=== PATIENT | female | born 1960 | race Caucasian/White ===

== ENCOUNTER 2019-10-08 11:06 | Emergency (ER) | payer OTHER, SELFPAY ==
--- NOTE | 2019-10-08 11:15 | XRR_ITS ---
PROCEDURE INFORMATION: Exam: XR Chest, 1 View Exam date and time: 10/08/2019 11:34 AM Age: 59 years old Clinical indication: Chest pain; Type not specified TECHNIQUE: Imaging protocol: XR of the chest Views: 1 view. COMPARISON: [facility] Chest 2 views 02/10/2015 8:22 AM FINDINGS: Lungs: Streaky bibasilar opacities are suggestive of atelectasis. Pleural space: Unremarkable. No pleural effusion. No pneumothorax. Heart/Mediastinum: There is mild cardiomegaly. Bones/joints: Unremarkable. XR/XR chest 1V portable [id number] IMPRESSION: Mild bibasilar atelectasis.
[2019-10-08 11:16] VITALS: BP 155/103; PULSE 73; RESP 16; TEMP 36.6; O2SAT 94; BMI 34.4
--- NOTE | 2019-10-08 11:16 | ECG_ITS ---
Measurements Intervals [place] Rate: 71 P: 52 PA: 142 QRS: 60 QRSD: 100 T: 61 QT: 442 QTc: 483 SINUS RHYTHM No previous ECG available for comparison Electronically Signed On 10-08-2019 16:47:01 CDT by Edson Lopez M.D. [id number]
--- NOTE | 2019-10-08 11:29 | ED_ITS ---
HPI - Chest Pain General: Chief Complaint: Chest Pain Stated Complaint: CHEST PAIN Time Seen by Provider: 10/08/19 11:15 History of Present Illness: HPI narrative: Patient is a 59-year-old female presenting today with chest pain that started about 1030 this morning. She was at work moving heavy boxes. She has been under a lot of stress because the place she works is closing. She started having chest pain that got better when she rested and was worse with exertion. EMS was called. She was diaphoretic and short of breath. She was given nitroglycerin tablets and now has an inch of Nitropaste on her chest and her pain is down to a 0. At its worst it was a 6. She has no history of prior cardiac disease. No family history of cardiac disease. She is a smoker. She is overweight. She has been having swelling in her legs for the past few months. She denies orthopnea or PND. MD complaint: chest pain Onset: during exertion Pain location: substernal Pain radiation: right arm Severity: severe Quality: heaviness Relieving factors: nitroglycerin and rest Exacerbating factors: exertion Associated symptoms: Deny abdominal pain, dyspnea, fever(s), nausea or vomiting Review of Systems General: Reports: 10 or more systems reviewed and unremarkable except in HPI and below Const: Denies: fever(s), chills, fatigue or malaise Eyes: Denies: change in vision ENMT: Denies: odynophagia Card: Reports: chest pain and swelling of feet/ankles (For several months) Resp: Denies: dyspnea, productive cough or non-productive cough GI: Denies: abdominal pain, nausea or vomiting : Denies: flank pain or difficulty voiding Musc: Denies: neck pain or back pain Skin/Breast: Denies: rash Neuro: Denies: headache(s), numbness in extremities or weakness in extremities Wm/Lymph: Denies: easy bruising or easy bleeding PFSH ED PFSH: Social History Smoking and tobacco status: current every day smoker Physical Exam Const: COMMON NORMALS: no acute distress, patient oriented x3, no limitations and alert GENERAL APPEARANCE: cooperative and comfortable HENMT: HEAD & SCALP: normal to inspection FACE & SINUS: normal facial exam Eye: GENERAL EYE: appearance normal, both eyes and all related structures Neck/C-Spine: COMMON NORMALS: supple, no meningeal signs and no JVD Chest: COMMONS NORMALS: normal inspection of the chest Resp: COMMON NORMALS: normal respiratory effort, No use of accessory muscles and clear to auscultation bilaterally AUSCULTATION: clear to auscultation bilaterally Cardio: COMMON NORMALS: no JVD, regular rate, regular rhythm and No murmurs present (Cardio) RATE: regular rate RHYTHM: regular rhythm GI: COMMON NORMALS: Normal to inspection, nondistended, normoactive bowel sounds present, Soft to palpation and non-tender INSPECTION: Yes normal to inspection AUSCULTATION: Yes normoactive bowel sounds PALPATION: Yes Soft to palpation Back/Pelvis: COMMON NORMALS: thoracic and lumbar spine normal to inspection Extremity: GENERAL: Yes edema (2+) Neuro: COMMON NORMALS: patient oriented x3, moves all extremities, no focal motor deficits and no sensory deficits noted SENSORIUM/ORIENTATION: Yes alert MENINGEAL SIGNS: Yes no meningeal signs Psych: COMMON NORMALS: mental status grossly normal, cooperative and normal affect Skin: COMMON NORMALS: no rashes or lesions noted and turgor normal GENERAL SKIN EXAM: no rashes or lesions noted and turgor normal Course ED course: This patient does have some risk factors for cardiac disease. Her pain was exertional today. She also has been under a lot of stress and she believes that the symptoms were related to anxiety. I discussed with her that particularly in women symptoms can be attributed to anxiety that are actually truly cardiac and that what we have done today is only rule out that she had an actual heart attack today. Strongly encouraged her to get follow-up with her primary care for further testing. I do not think she has significant risk today and I do not think she needs to be admitted to the hospital. She understands the return precautions. Vital Signs: Vital signs: Vital Signs Temperature 97.9 F 10/08/19 11:16 Pulse Rate 62 10/08/19 14:44 Respiratory Rate 15 10/08/19 14:44 Blood Pressure 144/88 10/08/19 14:44 Pulse Oximetry 93 10/08/19 14:44 MDM - Chest Pain Lab Data: Labs: Lab Results 10/08/19 10/08/19 10/08/19 Range/Units 10:47 10:47 10:47 WBC 11.0 H (4.0-10.0) 10^3/ uL RBC 4.90 (4.1-5.3) 10^6/u L Hgb 14.1 (11.5-15.3) g/dL Hct 43.4 (37.0-47.0) % MCV 88.6 (81-99) fL MCH 28.8 (28.0-34.0) pg MCHC 32.5 (30.0-36.0) g/dL RDW 13.7 (12.1-15.1) % Plt Count 300 (130-400) 10^3/c mm MPV 10.3 (7.4-10.4) fL Neut % (Auto) 57.8 % Lymph % (Auto) 30.1 % Union % (Auto) 7.8 % Eos % (Auto) 3.4 % Baso % (Auto) 0.5 % Neut # (Auto) 6.3 (1.8-7.7) 10^3/u L Lymph # (Auto) 3.3 (0.8-4.8) 10^3/u L Union # (Auto) 0.9 (0.2-0.9) 10^3/u L Eos # (Auto) 0.4 (0.0-0.8) 10^3/u L Baso # (Auto) 0.1 (0.0-0.1) 10^3/u L Nucleated RBC % (a uto) 0 % Nucleated RBCs # 0.0 /100WBC PT 12.80 (10.5-13.3) SECO NDS INR 0.94 (0.8-1.2) APTT 27.9 (23.9-36.7) SECO NDS D-Dimer 0.50 (0-0.59) ug/mIFE U Sodium 138 (136-145) mmol/L Potassium 3.7 (3.5-5.1) mmol/L Chloride 99 (98-107) mmol/L Carbon Dioxide 24 (22-29) mmol/L Anion Gap 18.7 (5-19) BUN 7 (6-20) mg/dL Creatinine 0.9 (0.5-0.9) mg/dL GFR Calculation 64.3 L (90-130) mL/min Glucose 113 (65-115) mg/dL Calculated Osmolal ity 283 L (285-295) mOsm/k g Calcium 9.0 (8.5-10.5) mg/dL Total Bilirubin 0.5 (0.15-1.2) mg/dL AST 24 (0-32) U/L ALT 32 (0-33) U/L Alkaline Phosphata se 114 H (35-105) IU/L Troponin T Baselin e (0-10) ng/mL Troponin T 120 Min [place] (0-10) ng/mL Delta Troponin T (0-10) ABS# NT-Pro-B Natriuret Pep 98 (0-125) pg/mL Total Protein 7.4 (6.6-8.7) g/dL Albumin 4.3 (3.5-5.2) g/dL Globulin 3.1 (1.3-4.6) g/dL Lipase 41 (13-60) U/L Urine Color (Yellow) Urine Appearance (CLEAR) Urine pH (5-7) Ur Specific Gravit y (1.005-1.030) Urine Protein (Negative) Urine Glucose (UA) (Normal) Urine Ketones (Negative) Urine Blood (Negative) Urine Nitrate (Negative) Urine Bilirubin (NEGATIVE) Urine Urobilinogen (Negative) mg/dL Ur Leukocyte Joanna ase (Negative) 10/08/19 10/08/19 10/08/19 Range/Units 10:47 11:40 12:50 WBC (4.0-10.0) 10^3/ uL RBC (4.1-5.3) 10^6/u L Hgb (11.5-15.3) g/dL Hct (37.0-47.0) % MCV (81-99) fL MCH (28.0-34.0) pg MCHC (30.0-36.0) g/dL RDW (12.1-15.1) % Plt Count (130-400) 10^3/c mm MPV (7.4-10.4) fL Neut % (Auto) % Lymph % (Auto) % Union % (Auto) % Eos % (Auto) % Baso % (Auto) % Neut # (Auto) (1.8-7.7) 10^3/u L Lymph # (Auto) (0.8-4.8) 10^3/u L Union # (Auto) (0.2-0.9) 10^3/u L Eos # (Auto) (0.0-0.8) 10^3/u L Baso # (Auto) (0.0-0.1) 10^3/u L Nucleated RBC % (a uto) % Nucleated RBCs # /100WBC PT (10.5-13.3) SECO NDS INR (0.8-1.2) APTT (23.9-36.7) SECO NDS D-Dimer (0-0.59) ug/mIFE U Sodium (136-145) mmol/L Potassium (3.5-5.1) mmol/L Chloride (98-107) mmol/L Carbon Dioxide (22-29) mmol/L Anion Gap (5-19) BUN (6-20) mg/dL Creatinine (0.5-0.9) mg/dL GFR Calculation (90-130) mL/min Glucose (65-115) mg/dL Calculated Osmolal ity (285-295) mOsm/k g Calcium (8.5-10.5) mg/dL Total Bilirubin (0.15-1.2) mg/dL AST (0-32) U/L ALT (0-33) U/L Alkaline Phosphata se (35-105) IU/L Troponin T Baselin e 21 H (0-10) ng/mL Troponin T 120 Min [place] 17.62 H (0-10) ng/mL Delta Troponin T -3.38 L (0-10) ABS# NT-Pro-B Natriuret Pep (0-125) pg/mL Total Protein (6.6-8.7) g/dL Albumin (3.5-5.2) g/dL Globulin (1.3-4.6) g/dL Lipase (13-60) U/L Urine Color Yellow (Yellow) Urine Appearance Clear (CLEAR) Urine pH 5 (5-7) Ur Specific Gravit y 1.015 (1.005-1.030) Urine Protein Neg (Negative) Urine Glucose (UA) Norm (Normal) Urine Ketones Negative (Negative) Urine Blood Neg (Negative) Urine Nitrate Negative (Negative) Urine Bilirubin Neg (NEGATIVE) Urine Urobilinogen 1 H (Negative) mg/dL Ur Leukocyte Joanna ase Negative (Negative) EKG Data^: EKG 1: EKG interpretation date: 10/08/19 EKG interpretation time: 11:38 Interpretation: Sinus rhythm with a rate of 71. Normal intervals. Normal axis. No ST changes suggesting ischemia. Discharge Plan Discharge Patient Disposition: Home, Self-Care Clinical Impression: Chest pain Qualifiers: Chest pain type: unspecified Qualified Code(s): R07.9 - Chest pain, unspecified Condition: Stable Prescriptions: No Action Multiple Vitamins Tablet 2 tab PO BEDTIME RF: 0 naproxen 500 mg Tablet 500 mg PO TID PRN (Reason: Pain) RF: 0 Discharge Orders: Discharge Order (Routine); Ordered 10/08/19 Ordered By: Maria Fernanda Valenzuela Referrals: Michelle Bermudez MD [Physician] - 2 weeks Morgan Caballero FNP [Emergency Department] - Discharge Diet: Usual diet Discharge Activity: Limit activity as instructed Patient Instructions: Chest Pain (ED) Activity Restrictions/Additional Instructions: Take an 81 mg aspirin daily until you see cardiology or Dr. Wolf. Discharge Date/Time: 10/08/19 14:50 Coding Level of Care Code ED Gas Regulator Repairer for Chg Fwd Exam Comprehensive
[2019-10-08 11:57] LABS: Basophils # 0.1 10^3/uL (0.0-0.1); Basophils % 0.5 %; Eosinophils # 0.4 10^3/uL (0.0-0.8); Eosinophils % 3.4 %; Hematocrit 43.4 % (37.0-47.0); Hemoglobin 14.1 g/dL (11.5-15.3); Lymphocytes # 3.3 10^3/uL (0.8-4.8); Lymphocytes % 30.1 %; Mean Corpuscular HGB Conc 32.5 g/dL (30.0-36.0); Mean Corpuscular Hemoglobin 28.8 pg (28.0-34.0); Mean Corpuscular Volume 88.6 fL (81-99); Mean Platelet Volume 10.3 fL (7.4-10.4); Monocytes # 0.9 10^3/uL (0.2-0.9); Monocytes % 7.8 %; Neutrophils # 6.3 10^3/uL (1.8-7.7); Neutrophils % 57.8 %; Nucleated Red Blood Cells % 0 %; Platelet Count 300 10^3/cmm (130-400); Red Cell Distribution Width 13.7 % (12.1-15.1)
[2019-10-08 12:04] LABS: INR 0.94 (0.8-1.2)
[2019-10-08 12:05] LABS: Partial Thromboplastin Time 27.9 SECONDS (23.9-36.7)
[2019-10-08 12:06] VITALS: BP 121/63; PULSE 71; RESP 15; O2SAT 93
[2019-10-08 12:11] LABS: Add Urine Microscopic? NO
[2019-10-08 12:19] LABS: Alanine Aminotransferase 32 U/L (0-33); Albumin Level 4.3 g/dL (3.5-5.2); Alkaline Phosphatase 114 IU/L (35-105); Anion Gap 18.7 (5-19); Aspartate Amino Transferase 24 U/L (0-32); Blood Urea Nitrogen 7 mg/dL (6-20); Carbon Dioxide 24 mmol/L (22-29); Chloride 99 mmol/L (98-107); Globulin 3.1 g/dL (1.3-4.6); Glomerular Filtration Rate 64.3 mL/min (90-130); Glucose 113 mg/dL (65-115); Lipase 41 U/L (13-60); NT Pro B Type Natriuretic Pept 98 pg/mL (0-125); Osmolality Calculated 283 mOsm/kg (285-295); Potassium 3.7 mmol/L (3.5-5.1); Sodium 138 mmol/L (136-145); Total Bilirubin 0.5 mg/dL (0.15-1.2); Total Protein 7.4 g/dL (6.6-8.7)
[2019-10-08 12:30] VITALS: BP 134/75; PULSE 68; RESP 15; O2SAT 94
[2019-10-08 12:32] LABS: Troponin(5th) Baseline 21 ng/mL (0-10)
[2019-10-08 12:40] LABS: Urine Appearance Clear (CLEAR); Urine Color Yellow (Yellow)
[2019-10-08 12:41] LABS: Bilirubin Urine Neg (NEGATIVE); Blood Urine Neg (Negative); Glucose Urine UA Norm (Normal); Ketones Urine Negative (Negative); Leukocyte Esterase Urine Negative (Negative); Nitrate Urine Negative (Negative); Protein Urine Neg (Negative); Specific Gravity, Urine 1.015 (1.005-1.030); Urobilinogen Urine 1 mg/dL (Negative); pH Urine 5 (5-7)
[2019-10-08 13:09] LABS: Troponin 5 2HR 17.62 ng/mL (0-10)
--- NOTE | 2019-10-08 13:16 | ECG_ITS ---
Measurements Intervals [place] Rate: 63 P: 42 [place]: 145 QRS: 66 QRSD: 90 T: 60 QT: 463 QTc: 474 SINUS RHYTHM No previous ECG available for comparison Electronically Signed On 10-08-2019 16:49:34 CDT by Edson Lopez M.D. [email or web address]
[2019-10-08 13:30] LABS: Troponin 5 2HR Delta -3.38 ABS# (0-10)
[2019-10-08 13:49] VITALS: BP 150/73; PULSE 72; RESP 20; O2SAT 94
[2019-10-08 14:25] VITALS: BP 133/70; PULSE 69; RESP 18; O2SAT 96
[2019-10-08 14:44] VITALS: BP 144/88; PULSE 62; RESP 15; O2SAT 93
== END 2019-10-08 14:50 | disposition home or self-care (01) ==
PROVIDERS: Emergency Provider Emergency Medicine
DX: R07.9 Chest pain, unspecified (principal); F17.210 Nicotine dependence, cigarettes, uncomplicated
CPT/HCPCS: 12345; 36415; 71045; 80053; 81003; 83690; 83880; 84484; 85025; 85378; 85610; 85730; 93005; 99283; 99284

== ENCOUNTER 2020-06-24 14:08 | Emergency (ER) | payer SELFPAY ==
[2020-06-24 14:32] VITALS: BP 104/66; PULSE 84; RESP 16; TEMP 37; O2SAT 93
--- NOTE | 2020-06-24 15:31 | CT_ITS ---
WS: [id number] CT HEAD TECHNIQUE: Noncontrast CT of the head obtained from the skullbase to the vertex. CLINICAL INFORMATION: fall COMPARISON: None. DLP: 817.[address] scans at [facility] use at least one of these dose optimization techniques: automat ed exposure control; mA and/or kV adjustment per patient size (includes targeted exams where dose is matched to clinical indication); or iterative reconstruction. FINDINGS: No evidence of intracranial hemorrhage or mass effect. Ventricular system and basal cisterns are willett nt. Mild small vessel changes with mild to parenchymal volume loss. No extra-axial fluid collections. No evidence of mass or mass effect. Normal bernal-white differentiation. Mild mucosal thickening right mastoid air cells and sphenoid sinuses. CT/CT head wo con* [id number] IMPRESSION: 1. No evidence of intracranial hemorrhage or mass effect. 2. Normal bernal-white differentiation. 3. No acute intracranial findings.
--- NOTE | 2020-06-24 15:31 | CT_ITS ---
WS: [id number] CT CERVICAL TRAUMA TECHNIQUE: Noncontrast CT of the cervical spine with coronal and sagittal reformatted images. CLINICAL INFORMATION: fall COMPARISON: None. DLP: 665.[address] scans at [facility] use at least one of these dose optimization techniques: automat ed exposure control; mA and/or kV adjustment per patient size (includes targeted exams where dose is matched to clinical indication); or iterative reconstruction. FINDINGS: Straightening of the normal cervical lordosis. Mild spondylitic changes. Normal craniocervical juncti on. Normal C1-C2 articulation. Dens is normal in appearance. Normal occipital condyles. No high-grade spinal canal narrowing. Normal C1 ring.Fracture through the base of an anterior bridging osteophyte at left C6-7. This is age indeterminant but most likely chronic. This appears well-corticated. Disc osteophytic ridging worse at C5-C6 and C6-C7. Normal prevertebral soft tissues. Mastoids air cells are well aerated. CT/CT cervical spin wo con* [id number] IMPRESSION: 1. Straightening of the normal cervical lordosis. 2. Fracture through the base of an anterior bridging osteophyte at left C6-7. This is age indeterminant but most likely chronic. This appears well-corticated . 3. Normal dens. 4. No other suspicious findings.
--- NOTE | 2020-06-24 15:32 | W.ED.FALL ---
HPI - Fall General: Chief Complaint: Fall Stated Complaint: FELL ON ICE/NECK PAIN,CONFUSION,ON ICE @30 MIN Time Seen by Provider: 06/24/20 15:28 Source: patient and family History of Present Illness: HPI Narrative: Fall on ice earlier today. Did hit her head. Questionable LOC. Had some confusion initially. Is getting better at this time now. Denies any other injury besides some neck stiffness but mostly on the left side of the neck. No midline tenderness. Associated symptoms-after fall: Reports headache(s) and neck pain; Denies abdominal pain or chest pain Review of Systems General: Reports: 10 or more systems reviewed and unremarkable except in HPI and below Const: Denies: fever(s) Eyes: Denies: change in vision ENMT: Denies: throat pain Card: Denies: chest pain Resp: Denies: dyspnea GI: Denies: abdominal pain : Denies: flank pain Musc: Reports: neck pain; Denies: extremity pain or joint pain Skin/Breast: Denies: rash Neuro: Reports: headache(s) and dizziness Psych: Denies: anxiety PFSH ED PFSH: Social History Smoking and tobacco status: current every day smoker Physical Exam Const: COMMON NORMALS: no acute distress, average body habitus, patient oriented x3, no limitations, healthy appearing, alert and well nourished HENMT: COMMON NORMALS: normocephalic, atraumatic, hearing grossly normal bilaterally, external ears normal, EAC's normal, TM's normal bilaterally, Normal external nose present, Normal nasal mucous membranes and turbinates present, moist oral mucous membranes, oropharynx normal, dentition normal and gingiva normal HEAD & SCALP: normocephalic and atraumatic NOSE: Normal external nose present and Normal nasal mucous membranes and turbinates present EXTERNAL EAR: Yes external ears normal EXTERNAL AUDITORY CANAL: EAC's normal TYMPANIC MEMBRANE: TM's normal bilaterally Eye: COMMON NORMALS: Equal, round and reactive pupils present, EOMs intact bilaterally, conjunctivae normal, no scleral icterus, no papilledema, normal visual molina by confrontation and fundi normal bilaterally CONJUNCTIVA: Yes conjunctivae normal PUPIL: Yes Equal, round and reactive pupils present DIRECT OPHTHALMOSCOPY: Yes no papilledema and Yes fundi normal bilaterally Neck/C-Spine: COMMON NORMALS: full ROM and no JVD GENERAL: Yes tender (Tenderness along the left paravertebral muscles. No midline tenderness) CERVICAL SPINE: Yes cervical ROM normal Resp: COMMON NORMALS: normal respiratory effort, No retractions, No use of accessory muscles, clear to auscultation bilaterally and percussion normal AUSCULTATION: clear to auscultation bilaterally PERCUSSION: percussion normal Cardio: COMMON NORMALS: no JVD, regular rate, regular rhythm, S1 normal heart sound present, S2 normal heart sound present, No gallops present (Cardio), No clicks present (Cardio), No murmurs present (Cardio), No rub (Cardio) and Peripheral pulses 2+ throughout RATE: regular rate RHYTHM: regular rhythm HEART SOUNDS: S1 normal heart sound present and S2 normal heart sound present PERIPHERAL PULSES: Peripheral pulses 2+ throughout Extremity: GENERAL: Yes normal exam except as noted Neuro: COMMON NORMALS: patient oriented x3 SENSORIUM/ORIENTATION: Yes alert Course Vital Signs: Vital signs: Vital Signs Temperature 98.6 F 06/24/20 14:32 Pulse Rate 88 06/24/20 15:54 Respiratory Rate 14 06/24/20 15:54 Blood Pressure 132/68 06/24/20 15:54 Pulse Oximetry 97 06/24/20 15:54 MDM - Fall MDM Narrative: Medical decision making narrative: CT of the head and cervical spine are negative for any acute injury. Patient discharged home with return precautions for closed head injury and concussion. Discharge Plan Discharge Patient Disposition: Home Clinical Impression: Concussion with loss of consciousness Qualifiers: Encounter type: initial encounter Qualified Code(s): S06.0X9A - Concussion with loss of consciousness of unspecified duration, initial encounter CHI (closed head injury) Qualifiers: Encounter type: initial encounter Qualified Code(s): S09.90XA - Unspecified injury of head, initial encounter Acute cervical sprain Qualifiers: Encounter type: initial encounter Qualified Code(s): S13.9XXA - Sprain of joints and ligaments of unspecified parts of neck, initial encounter Condition: Stable Prescriptions: No Action multivitamin [Multiple Vitamins] Tablet 2 tab PO BEDTIME RF: 0 Discharge Orders: Discharge ED (Routine); Ordered 06/24/20 Ordered By: Jose Angel Chavez Discharge Diet: Advance as tolerated Discharge Activity: Resume usual activity Patient Instructions: Opioid Safety Coding Level of Care Code ED Financial Aid Manager for Chg Fwd Exam Detailed
[2020-06-24 15:54] VITALS: BP 132/68; PULSE 88; RESP 14; O2SAT 97
[2020-06-24 16:57] VITALS: BP 132/68; PULSE 88; RESP 14; O2SAT 97
== END 2020-06-24 16:59 | disposition home or self-care (01) ==
PROVIDERS: Emergency Provider Emergency Medicine
DX: S06.0X9A Concussion with loss of consciousness of unspecified duration, initial encounter (principal); S13.9XXA Sprain of joints and ligaments of unspecified parts of neck, initial encounter; F17.210 Nicotine dependence, cigarettes, uncomplicated; W00.0XXA Fall on same level due to ice and snow, initial encounter
CPT/HCPCS: 70450; 72125; 99282